=== PATIENT | male | born 1965 | race Caucasian/White ===

== ENCOUNTER 2019-06-18 05:22 | Emergency (ER) | payer MEDICAID, OTHER ==
[~2019-06-18] VITALS: Ht 172.7 cm; Wt 95.3 kg
[2019-06-18 05:26] VITALS: BP 143/99
== END 2019-06-18 06:02 | disposition home or self-care (01) ==
LOC: ER 05:22
DX: L03.115 Cellulitis of right lower limb (principal); K21.9 Gastro-esophageal reflux disease without esophagitis; I10 Essential (primary) hypertension; F17.200 Nicotine dependence, unspecified, uncomplicated; Z60.2 Problems related to living alone

== ENCOUNTER 2020-04-16 09:16 | Emergency (ER) | payer MEDICAID ==
[~2020-04-16] VITALS: Ht 170.2 cm; Wt 95.3 kg
[2020-04-16] MEDS ORDERED: oxyCODONE/APAP (5/325 MG) 1 UDTAB TABLET ONE ×2 (10:07)
--- NOTE | 2020-04-16 10:11 | NUR ---
BACK PAIN, WORSE FOR THE LAST 2 DAYS; DENIES FALL . PT AAOX4, VSS. RR EVEN & UNLABORED. DENIES ANY OTHER DISCOMFORT. PT SEEN & EVAL'D BY DR. CASTRO. MEDICATED FOR PAIN, PT IRMA WELL.
[2020-04-16] MEDS ORDERED: oxyCODONE/APAP (5/325 MG) 1 UDTAB TABLET PO ONE (10:30)
--- NOTE | 2020-04-16 10:38 | NUR ---
Patient discharged to home in stable condition. Written and verbal after care instructions given. Patient verbalizes understanding of instruction.
[2020-04-16 10:39] VITALS: BP 132/78
== END 2020-04-16 10:39 | disposition home or self-care (01) ==
LOC: ER 09:16
DX: S39.012A Strain of muscle, fascia and tendon of lower back, initial encounter (principal); I10 Essential (primary) hypertension; K21.9 Gastro-esophageal reflux disease without esophagitis; F17.200 Nicotine dependence, unspecified, uncomplicated; Z60.2 Problems related to living alone; X58.XXXA Exposure to other specified factors, initial encounter; Y93.89 Activity, other specified; Y92.89 Other specified places as the place of occurrence of the external cause; Y99.8 Other external cause status